=== PATIENT | female | born 1955 | race Two or more races ===

== ENCOUNTER 2018-10-15 18:55 | Inpatient (IN) | payer OTHER ==
[~2018-10-15] VITALS: Ht 162.6 cm; Wt 76.2 kg
--- NOTE | 2018-10-15 19:02 | NUR ---
AT BEDSIDE FOR EVAL.
--- NOTE | 2018-10-15 19:12 | NUR ---
KENNY FROM WORK. AAOX4. PT LETHARGIC. BREATHING RAPID. ON 02 VIA NC @2LPM. C/O SOB AND NEAR SYNCOPE. PT TO ER BED 8. SEEN PT. AWAITING ORDERS
--- NOTE | 2018-10-15 19:19 | NUR ---
[facility]
--- NOTE | 2018-10-15 19:25 | NUR ---
IV LINE OBTAINED ON L AC 20G. BLOOD DRAWN AND GIVEN TO GROUP CONTRACT ANALYST AT BEDSIDE
[2018-10-15 19:28] LABS: BASOPHILS % (AUTO) 0.3 % (0.0-2.0); HEMATOCRIT 44 % (33-45); HEMOGLOBIN 15.8 g/dL (11.5-14.8); LYMPHOCYTES # (AUTO) 0.7 /CMM (0.8-4.8); LYMPHOCYTES % (AUTO) 7.6 % (20.0-44.0); MEAN CORPUSCULAR HGB CONC 36 g/dl (31.0-36.0); MEAN CORPUSCULAR VOLUME 98 fL (82-100); MONOCYTES # (AUTO) 0.8 /CMM (0.1-1.30); MONOCYTES % (AUTO) 8.4 % (2.0-12.0); NEUTROPHILS # (AUTO) 7.9 /CMM (1.8-8.9); NEUTROPHILS % (AUTO) 83.7 % (43.0-81.0); PLATELET COUNT (AUTO) 196 /CMM (150-450); RED BLOOD CELL COUNT(AUTO) 4.49 MIL/uL (4.0-5.2); WHITE BLOOD COUNT (AUTO) 9.4 K/uL (4.3-11.0)
[2018-10-15] MEDS ORDERED: IPRATROPIUM NEB FS 0.5 MG/2.5 ML AMPUL.NEB NEB ONE (19:30)
[2018-10-15] MEDS ORDERED: ALBUTEROL FS 2.5 MG/3 ML VIAL.NEB NEB ONE (19:30)
--- NOTE | 2018-10-15 19:35 | NUR ---
PT BEING WHEELED TO CT ON [facility]
--- NOTE | 2018-10-15 19:45 | NUR ---
CALLED PER PT REQUEST TO NOTIFY THAT SHE IS IN HOSPITAL
[2018-10-15 19:48] LABS: B-TYPE NATRIURETIC PEPTIDE 3864 PG/ML (0-125)
[2018-10-15 19:49] LABS: ALCOHOL, BLOOD < 3 mg/dL (0-0)
[2018-10-15] MEDS ORDERED: ALBUTEROL FS 2.5 MG/3 ML VIAL.NEB ONE (20:06)
[2018-10-15] MEDS ORDERED: IPRATROPIUM NEB FS 0.5 MG/2.5 ML AMPUL.NEB ONE (20:07)
[2018-10-15 20:18] LABS: CHOLESTEROL 154 mg/dL (<200); HDL CHOLESTEROL 116 mg/dL (40-60); LDL 29 mg/dL (0-99); TRIGLYCERIDES 79 mg/dL (30-150)
[2018-10-15 20:20] LABS: ALANINE AMINOTRANSFERASE 21 U/L (12-78); ALBUMIN 3.2 g/dL (3.4-5.0); ALKALINE PHOSPHATASE 57 U/L (46-116); ASPARTATE AMINOTRANSFERASE 59 U/L (15-37); BILIRUBIN,DIRECT 0.6 mg/dL (0.0-0.2); BILIRUBIN,TOTAL 2.3 mg/dL (0.2-1.0); CALCIUM, SERUM 8.5 mg/dL (8.5-10.1); CARBON DIOXIDE 24 mmol/L (21-32); CREATININE 0.4 mg/dL (0.6-1.3); GLUCOSE 109 mg/dL (74-106); POTASSIUM 2.9 mmol/L (3.5-5.1); TOTAL PROTEIN, SERUM 6.4 g/dL (6.4-8.2); UREA NITROGEN, BLOOD 8 mg/dL (7-18)
[2018-10-15 20:25] LABS: SODIUM SERUM 104 mmol/L (136-145)
[2018-10-15 20:26] LABS: CHLORIDE 68 mmol/L (98-107)
[2018-10-15] MEDS ORDERED: IV NS 0.9% 1,000 ML BAG IV ONE (20:30)
--- NOTE | 2018-10-15 20:41 | NUR ---
pt being wheeled to ct on [facility]
[2018-10-15] MEDS ORDERED: POTASSIUM CL. PREMIX PERIPHER. 200 ML ONE (21:33)
[2018-10-15] MEDS: POTASSIUM CL. PREMIX PERIPHER. 50 ML IV SCH ×3 (21:50→23:50)
[2018-10-15] MEDS ORDERED: ASPIRIN EC 81 MG TABLET.DR PO ONE (22:00)
[2018-10-15] MEDS ORDERED: ASPIRIN 81 MG TAB.CHEW ONE (22:07)
--- NOTE | 2018-10-15 22:26 | NUR ---
REPORT GIVEN TO IRAIS ALLEN FOR HUGO.
--- NOTE | 2018-10-15 22:26 | NUR ---
REPORT GIVEN TO IRAIS MANNING FOR HUGO.
[2018-10-15] MEDS ORDERED: HCTZ (22:30)
[2018-10-15] MEDS ORDERED: BENAZEP (22:30)
[2018-10-15] MEDS ORDERED: ZOLPIDEM TARTRATE 5 MG TABLET PO PRN (22:30)
[2018-10-15] MEDS ORDERED: SIMVASTATIN TAB 20MG (22:30)
[2018-10-15] MEDS ORDERED: ALBUTEROL AER HFA (22:30)
[2018-10-15] MEDS ORDERED: ACETAMINOPHEN 325 MG TABLET PO PRN (22:30)
[2018-10-15] MEDS ORDERED: SYMBICORT AER 160-4.5 (22:30)
[2018-10-15] MEDS ORDERED: HYDROCODONE/APAP 5/325MG 1 EACH TABLET PO PRN (22:30)
[2018-10-15] MEDS ORDERED: ONDANSETRON HCL/PF 4 MG/2 ML VIAL IVP PRN (22:30)
[2018-10-15] MEDS ORDERED: MAG HYDROX/AL HYDROX/SIMETH 30 ML UDC PO PRN (22:30)
[2018-10-15] MEDS ORDERED: MELOXICAM 7.5 MG (22:31)
[2018-10-15] MEDS ORDERED: OMEGA ACID (22:31)
[2018-10-15] MEDS ORDERED: SPIRIVA 2.5 MCG (22:31)
[2018-10-15] MEDS ORDERED: METHOCARBAMOL 750 MG (22:31)
[2018-10-15] MEDS ORDERED: FUROSEMIDE 20 MG/2 ML VIAL IV ONE (23:00)
--- NOTE | 2018-10-15 23:10 | NUR ---
INSPECTOR WATCH PARTS RCD PT FROM ER W/DX SEVERE HYPONATREMIA; PT IS A/O x4; PT IS VERY ANXIOUS BECAUSE SHE HAS TO BE AT WORK AT 0900. EXPLAINED TO PT THAT HER LAB VALUES WERE NOT NORMAL AT THIS TIME AND OFFERED PT A NOTE FOR WORK. PT NSR ON MONITOR. RCD PT ON O2 2L NC. PT C/O SOB WHILE ON HER BACK. POTASSIUM REPLACEMENT ONGOING.
--- NOTE | 2018-10-15 23:15 | NUR ---
PT TRANSPORTED TO UNIT WITH RN AND EMT AT BEDSIDE W/ ACLS PROTOCOL. NAD, NOTED WHILE PT BEING TRANSPORTED
[2018-10-15] MEDS: ENOXAPARIN SODIUM 40 MG/0.4 ML DISP.SYRIN SQ SCH (23:17)
[2018-10-15 23:19] VITALS: BP 148/73
--- NOTE | 2018-10-15 23:55 | NUR ---
WOUND CARE RN RCD PT WITH SECOND BAG OF POTASSIUM INFUSING; NOT SCANNED BY CONSTRUCTION JOB COST ESTIMATOR. SCANNED THIRD BAG AT THIS TIME.
[2018-10-16] VITALS (37 sets, daily range): BP systolic 97–144; BP diastolic 33–91
[2018-10-16 00:32] LABS: URINE SODIUM, RANDOM 18 mmol/l (40-220)
[2018-10-16] MEDS: POTASSIUM CL. PREMIX PERIPHER. 50 ML IV SCH (00:38)
[2018-10-16 00:40] LABS: OSMOLALITY,URINE 504 mOS/kg (340-1090)
[2018-10-16 01:32] LABS: BASOPHILS % (AUTO) 0.2 % (0.0-2.0); HEMATOCRIT 42 % (33-45); LYMPHOCYTES # (AUTO) 0.9 /CMM (0.8-4.8); LYMPHOCYTES % (AUTO) 8.8 % (20.0-44.0); MEAN CORPUSCULAR HGB CONC 36 g/dl (31.0-36.0); MEAN CORPUSCULAR VOLUME 97 fL (82-100); MONOCYTES # (AUTO) 0.8 /CMM (0.1-1.30); MONOCYTES % (AUTO) 7.5 % (2.0-12.0); NEUTROPHILS # (AUTO) 8.9 /CMM (1.8-8.9); NEUTROPHILS % (AUTO) 83.5 % (43.0-81.0); PLATELET COUNT (AUTO) 167 /CMM (150-450); RED BLOOD CELL COUNT(AUTO) 4.29 MIL/uL (4.0-5.2); WHITE BLOOD COUNT (AUTO) 10.7 K/uL (4.3-11.0)
[2018-10-16] MEDS: Z GUARD REMEDY 2 OZ OINT TP PRN ×2 (01:39→16:39)
--- NOTE | 2018-10-16 01:40 | NUR ---
HAND WELT BUTTER THREE BAGS OF POTASSIUM IV ADMINISTERED IN ICU.
[2018-10-16 01:42] LABS: CALCIUM, SERUM 8.1 mg/dL (8.5-10.1); CREATININE 0.4 mg/dL (0.6-1.3); PHOSPHORUS 2.3 mg/dL (2.5-4.9)
[2018-10-16 01:49] LABS: POTASSIUM 2.7 mmol/L (3.5-5.1)
[2018-10-16 01:50] LABS: MAGNESIUM 1.1 mg/dL (1.8-2.4)
[2018-10-16] MEDS: Magnesium 1GM/D5W 100ML PREMIX 100 ML IV SCH ×3 (02:22→04:11)
[2018-10-16] MEDS ORDERED: POTASSIUM CHLORIDE 20 MEQ TAB.PRT.SR PO ONE (02:30)
[2018-10-16 06:37] LABS: BASOPHILS % (AUTO) 0.1 % (0.0-2.0); EOSINOPHILS % (AUTO) 0.1 % (0.0-6.0); HEMATOCRIT 40 % (33-45); HEMOGLOBIN 14.5 g/dL (11.5-14.8); LYMPHOCYTES # (AUTO) 1.1 /CMM (0.8-4.8); LYMPHOCYTES % (AUTO) 13.5 % (20.0-44.0); MEAN CORPUSCULAR HGB CONC 36 g/dl (31.0-36.0); MEAN CORPUSCULAR VOLUME 97 fL (82-100); MONOCYTES # (AUTO) 0.6 /CMM (0.1-1.30); NEUTROPHILS # (AUTO) 6.3 /CMM (1.8-8.9); NEUTROPHILS % (AUTO) 78.3 % (43.0-81.0); PLATELET COUNT (AUTO) 167 /CMM (150-450); RED BLOOD CELL COUNT(AUTO) 4.18 MIL/uL (4.0-5.2)
[2018-10-16 06:40] LABS: CALCIUM, SERUM 8.1 mg/dL (8.5-10.1); CREATININE 0.4 mg/dL (0.6-1.3); MAGNESIUM 2.2 mg/dL (1.8-2.4); PHOSPHORUS 2.2 mg/dL (2.5-4.9)
[2018-10-16 06:48] LABS: POTASSIUM 2.5 mmol/L (3.5-5.1)
--- NOTE | 2018-10-16 07:15 | NUR ---
RECEIVED CARE OF PATIENT FROM IRAIS MANNING. PATIENT A/OX3 WITH PERIODS OF FORGETFULNESS. TOLERATING LOW FLOW 02 NC WITHOUT SOB, DIFFICULTY BREATHING, DENIES PAIN, AND NO S/S OF ACUTE DISTRESS. PATIENT TELE SINUS. IV SITES C/D/I/P. SAFETY, SKIN, ASPIRATION PRECAUTIONS IN PLACE AND WILL MONITOR.
[2018-10-16] MEDS ORDERED: POTASSIUM CL. PREMIX PERIPHER. 50 ML IV SCH (08:00)
[2018-10-16] MEDS ORDERED: POTASSIUM PHOSPHATE MM 15 MMOL in IV D5W 250 ML IV SCH (08:30)
--- NOTE | 2018-10-16 08:31 | NUR ---
PER DR JAFFE STOP ALL IV KCL REPLACEMENT. GIVE ORDERED PO
[2018-10-16] MEDS ORDERED: IV NS 0.9% 1,000 ML IV SCH (09:00)
[2018-10-16 09:21] LABS: THYROID STIMULATING HORMONE 0.875 uIU/mL (0.358-3.74)
[2018-10-16] MEDS: POTASSIUM CHLORIDE 20 MEQ TAB.PRT.SR PO SCH ×5 (09:41→13:59)
[2018-10-16] MEDS: POTASSIUM PHOSPHATE MM 7.5 MMOL in IV D5W 100 ML IV SCH ×2 (09:46→12:50)
[2018-10-16] MEDS: FUROSEMIDE 40 MG/4 ML VIAL IV SCH ×2 (09:46→12:50)
--- NOTE | 2018-10-16 10:50 | NUR ---
DR BLANCO AT BEDSIDE. PER PATIENT REQUESTING BREATHING TREATMENTS. MEDICATIONS ORDERED PER MD ORDER. PATIENT TOLERATING LOW FLOW NC AT 2L WITHOUT DIFFICULTY BREATHING OR SOB. CONTINUES WITH ACTIVE WET COUGH; PER PATIENT THIS HAPPENS FREQUENTLY TO HER.
[2018-10-16] MEDS: IPRATROPIUM NEB FS 0.5 MG/2.5 ML AMPUL.NEB NEB PRN ×2 (11:01→15:35)
[2018-10-16] MEDS: ALBUTEROL FS 2.5 MG/0.5 ML VIAL.NEB NEB PRN ×2 (11:01→15:35)
[2018-10-16] MEDS ORDERED: IV Sodium Chloride 3% 500 ML 500 ML IV ONE (11:30)
[2018-10-16 12:24] LABS: CALCIUM, SERUM 8.3 mg/dL (8.5-10.1); CREATININE 0.4 mg/dL (0.6-1.3); POTASSIUM 2.9 mmol/L (3.5-5.1)
[2018-10-16] MEDS: methylPREDNISolone SOD SUCC 125 MG/2ML VIAL IV SCH ×2 (12:50→16:39)
[2018-10-16 18:51] LABS: CALCIUM, SERUM 8.1 mg/dL (8.5-10.1); CREATININE 0.5 mg/dL (0.6-1.3); POTASSIUM 3.2 mmol/L (3.5-5.1)
--- NOTE | 2018-10-16 19:03 | NUR ---
ALL DUE MEDS GIVEN AND ALL NEEDS MET. PATIENT IV SITES C/D/I/P. GALEAS CATH TO GRAVITY WITH 3900ML OUTPUT S/P 80MEQ LASIX TODAY. AFEBRILE. TELE NSR/ST. TOLERATING LOW FLOW 02 NC. NO DISTRESS NOTED, NO SOB, DIFFICULTY BREATHING AND DENIES PAIN. SKIN, SAFETY, ASPIRATION PRECAUTIONS IN PLACE AND MONITORED. CARE ENDORSED TO LOBITO DREW FOR HUGO. Addendum: 10/16/18 at 1905 by NOELLE AGUSTIN RN CARE ENDORSED TO IRAIS MANNING FOR HUGO
[2018-10-16] MEDS: ENOXAPARIN SODIUM 40 MG/0.4 ML DISP.SYRIN SQ SCH (22:20)
--- NOTE | 2018-10-16 22:30 | NUR ---
LAB INSTRUCTOR PT GIVEN TYLENOL PER REQUEST FOR BLE PAIN 07/06. CONTINUE TO MONITOR.
[2018-10-17] VITALS (22 sets, daily range): BP systolic 111–152; BP diastolic 51–75
--- NOTE | 2018-10-17 | NUR ---
LUMBER TRIPPER PT NTOED VERY RESTLESS; PER PT SHE IS UNABLE TO SLEEP. TURNED OFF LIGHTS. TV AND ENCOURAGED PT TO SLEEP. CONTINUE TO MONITOR.
[2018-10-17 00:50] LABS: CALCIUM, SERUM 8.3 mg/dL (8.5-10.1); CREATININE 0.5 mg/dL (0.6-1.3); POTASSIUM 3.3 mmol/L (3.5-5.1)
--- NOTE | 2018-10-17 03:30 | NUR ---
COMMUNICATION EQUIPMENT MECHANIC PT CALM AT THIS TIME; HAS BEEN SLEEPING FOR 3 HRS. BED ALARM REMAINS ON.
[2018-10-17 05:06] LABS: BASOPHILS % (AUTO) 0.3 % (0.0-2.0); HEMATOCRIT 42 % (33-45); HEMOGLOBIN 15.3 g/dL (11.5-14.8); LYMPHOCYTES # (AUTO) 0.3 /CMM (0.8-4.8); LYMPHOCYTES % (AUTO) 3.9 % (20.0-44.0); MEAN CORPUSCULAR HGB CONC 36 g/dl (31.0-36.0); MEAN CORPUSCULAR VOLUME 99 fL (82-100); MONOCYTES # (AUTO) 0.3 /CMM (0.1-1.30); MONOCYTES % (AUTO) 4.4 % (2.0-12.0); NEUTROPHILS # (AUTO) 6.8 /CMM (1.8-8.9); NEUTROPHILS % (AUTO) 91.4 % (43.0-81.0); PLATELET COUNT (AUTO) 193 /CMM (150-450); WHITE BLOOD COUNT (AUTO) 7.4 K/uL (4.3-11.0)
[2018-10-17 05:21] LABS: ALBUMIN 3.2 g/dL (3.4-5.0); BILIRUBIN,TOTAL 1.2 mg/dL (0.2-1.0); CALCIUM, SERUM 8.6 mg/dL (8.5-10.1); CREATININE 0.4 mg/dL (0.6-1.3); MAGNESIUM 1.4 mg/dL (1.8-2.4); POTASSIUM 3.3 mmol/L (3.5-5.1); TOTAL PROTEIN, SERUM 6.6 g/dL (6.4-8.2)
[2018-10-17 05:23] LABS: THYROID STIMULATING HORMONE 0.495 uIU/mL (0.358-3.74); URIC ACID 5.1 mg/dL (2.6-7.2)
--- NOTE | 2018-10-17 07:15 | NUR ---
pT RECEIVED THS MORNING ALERT AND ORIENTED,ON INSULIN DRIPP AT 3ML.PT BS Q 1HR WNL 11,125,191.PT SEEN BY MD WHO ORDERED LANTUS AND TO STOP INSULIN DRIP AFTER PT STARTED ON LANTUS.ORDER IMPLEMENTED,PT BS WNL NO S/S OF HYPERGLYCEMIA NOTED.PT HAS 3 MEALS WITHOUT ANY PROBLEMS.PT POTASSIUM WAS 3.3 MD AWARE NEW ORDER FOR REPLACEMENT DONE .
[2018-10-17] MEDS: Magnesium 1GM/D5W 100ML PREMIX 100 ML IV SCH ×2 (08:00→09:35)
--- NOTE | 2018-10-17 08:38 | NUR ---
WOUND CARE CONSULT: PT PRESENTS WITH RED RASH TO PERINEUM AND INNER/LOWER BUTTOCKS, PRESENT ON ADMISSION. RECOMMENDATIONS MADE FOR SKIN CARE AND PROTECTION. DISCUSSED WITH NURSING STAFF. DEFER TO DPM FOR DRY ESCHAR/WOUND TO LEFT LOWER LEG, PRESENT ON ADMISSION. PT HAS ADAL BUTTS. WILL SEE PRN. GONZALES IN AGREEMENT WITH PLAN OF CARE. Addendum: 10/17/18 at 0839 by OLIVE BELTRAN WNDNU Amended: Links added.
[2018-10-17] MEDS: POTASSIUM CHLORIDE 20 MEQ TAB.PRT.SR PO SCH ×3 (09:00→10:00)
[2018-10-17] MEDS: CLOTRIMAZOLE 1% 15 GM TUBE TP SCH ×2 (09:35→18:05)
[2018-10-17] MEDS: methylPREDNISolone SOD SUCC 125 MG/2ML VIAL IV SCH ×3 (09:35→18:05)
[2018-10-17] MEDS ORDERED: CEFTRIAXONE 1 G in IV D5W 50 ML IV SCH (11:00)
[2018-10-17] MEDS: AZITHROMYCIN 500 MG in IV D5W 250 ML IV SCH (12:00)
[2018-10-17] MEDS ORDERED: HYDROCODONE/APAP 5/325MG 1 EACH TABLET PO PRN (12:00)
[2018-10-17 12:06] LABS: CALCIUM, SERUM 9.2 mg/dL (8.5-10.1); CREATININE 0.5 mg/dL (0.6-1.3); POTASSIUM 2.9 mmol/L (3.5-5.1)
[2018-10-17] MEDS: LEVOFLOXACIN 500 MG /D5W 100ML 500 MG in PREMIX 1 EA IV SCH (14:00)
[2018-10-17 18:40] LABS: CALCIUM, SERUM 8.6 mg/dL (8.5-10.1); CREATININE 0.7 mg/dL (0.6-1.3); POTASSIUM 3.1 mmol/L (3.5-5.1)
--- NOTE | 2018-10-17 19:08 | NUR ---
pT ALERT AND ORIENTED,RECEIVED THIS MORNING FROM OUTGOING RN ,MAGNESIUM GIVING ORDERED AND POTASIUM.PT NOT ON SODIUM ANYMORE BECAUSE LEVEL IS NORMAL.PT SEEN BY NEW ORDER IMPLEMANTED .PT GALEAS LEAKING,BALLOON INFLATED AND BETTER AT THIS TIS TIME.PT SKIN REMAIS FRAGILE AND SEEN BY WOUND NURSE WHO PRESCRIBE NEW TX FOR IN ,COCCYX AREA RED, PT DOWNGRADE AND TRANSFERED TO THIRD FLOOR ,GALEAS OUT AND OUTPUT UPDATED.
--- NOTE | 2018-10-17 19:25 | NUR ---
TOURIST INFORMATION ASSISTANT OPENING NOTES: RECEIVED PT FROM ICU SHE IS DOWNGRADED TO TELE NOW. PT IS ON 2LPM VIA NC AND IS TOLERATING WELL. NO SOB NOTED. NO S/S OF DISTRESS. IV ON R FOREARM #18G AND L FOREARM #20G BOTH HAVE BEEN FLUSHED. BOTH PATENT AND INTACT. CURRENTLY H/L. INFORMED PT THAT SHE IS ON FLUID RESTRICTION. BED KEPT IN LOW, LOCKED POSITION, AND SIDE RAILS X 2UP. PT IN SEMI-CASTRO'S POSITION. PT ON TELE BOX AND READING SHOWS SR 92. BED ALARM ACTIVATED. WILL CONTINUE TO MONITOR PT.
[2018-10-17] MEDS ORDERED: POTASSIUM CHLORIDE 20 MEQ TAB.PRT.SR PO ONE (20:00)
[2018-10-17] MEDS: IPRATROPIUM NEB FS 0.5 MG/2.5 ML AMPUL.NEB NEB PRN (20:07)
[2018-10-17] MEDS: ALBUTEROL FS 2.5 MG/0.5 ML VIAL.NEB NEB PRN (20:07)
[2018-10-17] MEDS: ENOXAPARIN SODIUM 40 MG/0.4 ML DISP.SYRIN SQ SCH (21:21)
--- NOTE | 2018-10-17 21:59 | NUR ---
HOB MACHINE OPERATOR NOTES: URINE COLLECTED AND PLACED IN REFRIGERATOR.
[2018-10-18 00:26] VITALS: BP 107/64
[2018-10-18 00:29] LABS: URINE SODIUM, RANDOM < 5 mmol/l (40-220)
[2018-10-18 00:45] LABS: OSMOLALITY,URINE 323 mOS/kg (340-1090)
[2018-10-18 04:26] VITALS: BP 110/65
--- NOTE | 2018-10-18 04:29 | NUR ---
ELECTRICIAN UNDERGROUND NOTES: STRATEGIC INSIGHTS LEAD JIGAR KAMARA ON FLOOR. INFORMED HER OF URINE OSMOLALLITY 323 AND UR RANDOM NA <5 ; NO NEW ORDERS AT THIS TIME. ALSO AWARE THAT NA IS 123; AGAIN, NO NEW ORDERS AT THIS TIME.
--- NOTE | 2018-10-18 06:43 | NUR ---
BRICK WASHER CLOSING NOTES: ALL NEEDS WERE ATTENDED AND ANTICIPATED FOR. PT KEPT CLEAN, DRY, AND COMFORTABLE. PT REMAINS ON 2LPM VIA NC. IVS REMAIN INTACT. BOTH HAVE BEEN FLUSHED AND KEPT H/L. PT ON TELE MONITOR AND READING SHOWS SR 85 WITH PACS AND PVCS. PT REMAINS ON FLUID RESTRICTION AND PT UNDERSTANDS. BED ALARM ACTIVATED. BED KEPT IN LOW, LOCKED POSITION, AND SIDE RAILS X 3UP. WILL ENDORSE TO AM NURSE FOR HUGO. Addendum: 10/18/18 at 0719 by CARLOS GONCALVES RN PT UPSET THAT MACHINE OPERATOR IS ALWAYS GETTING BLOOD FROM HER. PT WOULD LIKE A DOCTOR TO SPEAK AND EXPLAIN THINGS TO HER. ENDORSED TO IRAIS TERRELL.
--- NOTE | 2018-10-18 07:26 | NUR ---
CANDLEMAKER OPENING NOTES Received patient on 2 L nasal cannula, no sob noted. Patient remains a/o x4, no s/s of pain noted. Patient remains on fluid restriction. Patient's Right and L forearm remains patent and unobstructed. Patient lying down on bed and call light is within reach.
[2018-10-18 07:36] LABS: ALBUMIN 2.9 g/dL (3.4-5.0); BILIRUBIN,TOTAL 1.2 mg/dL (0.2-1.0); CREATININE 0.4 mg/dL (0.6-1.3); MAGNESIUM 1.6 mg/dL (1.8-2.4); PHOSPHORUS 2.3 mg/dL (2.5-4.9); POTASSIUM 3.9 mmol/L (3.5-5.1); TOTAL PROTEIN, SERUM 6.4 g/dL (6.4-8.2)
[2018-10-18 08:00] VITALS: BP 138/77
[2018-10-18] MEDS: Magnesium 1GM/D5W 100ML PREMIX 100 ML IV SCH ×2 (08:32→09:51)
[2018-10-18] MEDS: methylPREDNISolone SOD SUCC 125 MG/2ML VIAL IV SCH ×2 (08:37→12:28)
[2018-10-18] MEDS: CLOTRIMAZOLE 1% 15 GM TUBE TP SCH (08:42)
[2018-10-18] MEDS ORDERED: PRED10TA PO (09:53)
[2018-10-18] MEDS ORDERED: BENA20TA9 PO (09:53)
[2018-10-18] MEDS ORDERED: LEVO500T90 PO (09:53)
[2018-10-18 10:40] LABS: BASOPHILS % (AUTO) 0.1 % (0.0-2.0); EOSINOPHILS % (AUTO) 0.1 % (0.0-6.0); HEMATOCRIT 40 % (33-45); HEMOGLOBIN 13.7 g/dL (11.5-14.8); LYMPHOCYTES # (AUTO) 0.9 /CMM (0.8-4.8); LYMPHOCYTES % (AUTO) 7.7 % (20.0-44.0); MEAN CORPUSCULAR HGB CONC 34 g/dl (31.0-36.0); MEAN CORPUSCULAR VOLUME 101 fL (82-100); MONOCYTES # (AUTO) 0.8 /CMM (0.1-1.30); MONOCYTES % (AUTO) 6.9 % (2.0-12.0); NEUTROPHILS # (AUTO) 10.2 /CMM (1.8-8.9); NEUTROPHILS % (AUTO) 85.2 % (43.0-81.0); PLATELET COUNT (AUTO) 183 /CMM (150-450); RED BLOOD CELL COUNT(AUTO) 3.98 MIL/uL (4.0-5.2); WHITE BLOOD COUNT (AUTO) 11.9 K/uL (4.3-11.0)
[2018-10-18] MEDS: AZITHROMYCIN 500 MG in IV D5W 250 ML IV SCH (12:07)
[2018-10-18] MEDS ORDERED: K PHOS NEUTRAL 250 MG TABLET PO ONE (12:30)
[2018-10-18] MEDS: LEVOFLOXACIN 500 MG /D5W 100ML 500 MG in PREMIX 1 EA IV SCH (13:40)
--- NOTE | 2018-10-18 15:38 | NUR ---
automotive parts coordinator notes Patient discharged at this time. No sob noted, vital signs stable. Patient denies pain at this time. Patient has her walker as prescribed by the PT. IV removed with minimal bleeding. Patient's wound photo taken, but patient refused photos of her perineal area. Took photos of her right and left arm, and right and left leg. Patient stated she did not want photos of anything else. Patient has all the paperwork for discharge. Patient has all her belongings. All paperwork signed, and all patient's concern is answered. Patient has her prescription as well. Patient was picked up by her .
== END 2018-10-18 15:40 | disposition home or self-care (01) | DRG 280 ==
LOC: ER 18:55 → ICU 21:39 → TELE 10-17 18:28 → MED 10-18 08:12
PROVIDERS: ADMIT Nurse Practitioner Acute Care; ATTEND Student in an Organized Health Care Education/Training Program
DX: I11.0 Hypertensive heart disease with heart failure (principal); G93.41 Metabolic encephalopathy; I21.A1 Myocardial infarction type 2; J15.9 Unspecified bacterial pneumonia; E44.1 Mild protein-calorie malnutrition; J44.1 Chronic obstructive pulmonary disease with (acute) exacerbation; E87.2 Acidosis; E87.1 Hypo-osmolality and hyponatremia; I16.0 Hypertensive urgency; I50.33 Acute on chronic diastolic (congestive) heart failure; D69.2 Other nonthrombocytopenic purpura; E83.39 Other disorders of phosphorus metabolism; E83.42 Hypomagnesemia; E87.6 Hypokalemia; F17.210 Nicotine dependence, cigarettes, uncomplicated; I25.10 Atherosclerotic heart disease of native coronary artery without angina pectoris; Z96.641 Presence of right artificial hip joint; R55 Syncope and collapse; E88.09 Other disorders of plasma-protein metabolism, not elsewhere classified; R74.0 Nonspecific elevation of levels of transaminase and lactic acid dehydrogenase [LDH]; Z68.28 Body mass index [BMI] 28.0-28.9, adult; S80.812A Abrasion, left lower leg, initial encounter; X58.XXXA Exposure to other specified factors, initial encounter; Y93.9 Activity, unspecified; T50.2X5A Adverse effect of carbonic-anhydrase inhibitors, benzothiadiazides and other diuretics, initial encounter; J40 Bronchitis, not specified as acute or chronic; Y92.009 Unspecified place in unspecified non-institutional (private) residence as the place of occurrence of the external cause
CPT/HCPCS: 36415; 70450-TC; 71045-TC; 80048-TC; 80053-TC; 80061-TC; 80076-TC; 80305; 82962-TC; 83605-TC; 83735-TC; 83880; 83935-TC; 84100-TC; 84300-TC; 84439-TC; 84443-TC; 84484-TC; 84550-TC; 85025-TC; 85730-TC; 87040-TC; 87081-TC; 93307-TC; 97116-TC; 97530-TC; A4216; G0378; G0480; J0456; J0696; J1650; J1940; J1956; J2930; J3475; J3480; J3490; J7030; J7060

== ENCOUNTER 2019-05-04 22:32 | Inpatient (IN) | payer OTHER ==
[2019-05-03] MEDS: CEFTRIAXONE 1GM BAG (ER ONLY) 50 ML IV ONE (23:43)
[2019-05-03] MEDS: IV NS 0.9% 1,000 ML BAG IV ONE (23:43)
[~2019-05-04] VITALS: Ht 167.6 cm; Wt 78.0 kg
[~2019-05-04 22:32] MED LIST: ALBUTEROL AER HFA; BENA20TA9 PO; BENAZEP; HCTZ; LEVO500T90 PO; MELOXICAM 7.5 MG; METHOCARBAMOL 750 MG; OMEGA ACID; PRED10TA PO; SIMVASTATIN TAB 20MG; SPIRIVA 2.5 MCG; SYMBICORT AER 160-4.5
--- NOTE | 2019-05-04 22:32 | NUR ---
BIBRA FOR RESPIRATORY FAILURE. PT ON AMBU BAG UPON ARRIVAL, PT TO BED 5. PT ON MONITOR, MD AT BEDSIDE FOR EVAL
--- NOTE | 2019-05-04 22:40 | NUR ---
PER NURSING SUP NO ICU NURSE AVAILABLE AT THIS TIME
--- NOTE | 2019-05-04 22:46 | NUR ---
RT NOTE Late Entry: Pt arrived via Fire department on bag mask ventilation at 15lpm. Pt showed signs of respiratory failure. Pt orally intubated via ETT #7.5 secured at 23cm at the lip line Per dr bravo request. Colormetric Co2 color change confirmed. Bs are clear bilaterally. Abg to be taken in [address] bravo req. waiting for chest x ray results. Alarms are set and audible. Vent plugged into red outlet. Ambu bag bedside. Will continue to monitor closely. Addendum: 05/05/19 at 0338 by BRYON QUIROZ RT Amended: Links added.
[2019-05-04] MEDS ORDERED: LEVOFLOXACIN 750 MG /D5W 150ML 150 ML IV ONE (23:00)
[2019-05-04] MEDS ORDERED: ALBUTEROL FS 2.5 MG/3 ML VIAL.NEB NEB ONE (23:00)
[2019-05-04] MEDS ORDERED: IPRATROPIUM NEB FS 0.5 MG/2.5 ML AMPUL.NEB NEB ONE (23:00)
[2019-05-04 23:01] LABS: BASOPHILS % (AUTO) 0.2 % (0.0-2.0); HEMATOCRIT 43 % (33-45); HEMOGLOBIN 14.4 g/dL (11.5-14.8); LYMPHOCYTES % (AUTO) 8.5 % (20.0-44.0); MEAN CORPUSCULAR HGB CONC 34 g/dl (31.0-36.0); MEAN CORPUSCULAR VOLUME 106 fL (82-100); MONOCYTES # (AUTO) 0.6 /CMM (0.1-1.30); MONOCYTES % (AUTO) 5.2 % (2.0-12.0); NEUTROPHILS # (AUTO) 10.2 /CMM (1.8-8.9); NEUTROPHILS % (AUTO) 86.1 % (43.0-81.0); PLATELET COUNT (AUTO) 116 /CMM (150-450); RED BLOOD CELL COUNT(AUTO) 4.01 MIL/uL (4.0-5.2); WHITE BLOOD COUNT (AUTO) 11.8 K/uL (4.3-11.0)
--- NOTE | 2019-05-04 23:05 | NUR ---
LIBRADO ARMAS STARTED PER . DR. ÁLVAREZ ORDERS. TITRATE TO EFFECT
--- NOTE | 2019-05-04 23:07 | NUR ---
2233 ETOMIDATE 20MG IVP AND SUCCYCHLINE 120MG IVP GIVEN UNDER DIRECT SUPERVISION OF MD DR. ÁLVAREZ. 2235 7.5 ET TUBE PLACED BY MD AND RT AT 2235, 23 AT THE LIP, PLACEMENT CHECK VIA BILAT BREATH SOUNDS, CXR ORDERED TO CONFIRM PLACEMENT, O2 SAT 100%, PT COLOR IS PINK, SKIN WARM AND DRY
[2019-05-04 23:21] LABS: APPEARANCE,URINE Clear (CLEAR); BILIRUBIN,URINE Negative (NEGATIVE); BLOOD, URINE Moderate Ery/uL (NEGATIVE); COLOR,URINE Yellow (YELLOW); KETONES,URINE >=160 (NEGATIVE); LEUKOCYTE ESTERASE ,URINE Negative (NEGATIVE); NITRITE, URINE Negative (NEGATIVE); PH,URINE 5.5 (5.0-8.0); PROTEIN,URINE >=300 mg/dl (NEGATIVE); UGLUCOSE 250 MG/DL mg/dL (NEGATIVE); UROBILINOGEN,URINE 0.2 EU/dL (0.2)
[2019-05-04] MEDS ORDERED: ALBUTEROL FS 2.5 MG/3 ML VIAL.NEB ONE (23:31)
[2019-05-04] MEDS ORDERED: IPRATROPIUM NEB FS 0.5 MG/2.5 ML AMPUL.NEB ONE (23:31)
[2019-05-04 23:38] LABS: ABG OXYGEN SATURATION 99.3 % (92.0-98.5); ABG PH 7.345 (7.350-7.450); ABG PO2 438.4 mmHg (75.0-100.0); AaDO2 241.6 mmHg; COHb 4.1 % (0.5-1.5); MetHb 0.4 % (0.0-1.5); O2Hb 94.8 % (94.0-97.0); SITE, ABG Left Radial; VENT MODE, BG AC 18 500 100% +5
[2019-05-04] MEDS ORDERED: HALOPERIDOL LACTATE INJ 5 MG/ML VIAL ONE (23:42)
[2019-05-04] MEDS ORDERED: CEFTRIAXONE 1GM BAG (ER ONLY) 50 ML IV ONE (23:42)
[2019-05-04] MEDS: CEFTRIAXONE 1GM BAG (ER ONLY) 50 ML IV ONE (23:43)
[2019-05-04] MEDS: IV NS 0.9% 1,000 ML BAG IV ONE (23:43)
[2019-05-05] VITALS (67 sets, daily range): BP systolic 86–150; BP diastolic 39–80
[2019-05-05] MEDS ORDERED: HALOPERIDOL LACTATE INJ 5 MG/ML VIAL IV ONE
[2019-05-05 00:05] LABS: ALANINE AMINOTRANSFERASE 29 U/L (12-78); ALKALINE PHOSPHATASE 52 U/L (46-116); ASPARTATE AMINOTRANSFERASE 51 U/L (15-37); B-TYPE NATRIURETIC PEPTIDE 10699 PG/ML (0-125); BILIRUBIN,DIRECT 0.5 mg/dL (0.0-0.2); BILIRUBIN,TOTAL 1.9 mg/dL (0.2-1.0); CALCIUM, SERUM 7.7 mg/dL (8.5-10.1); CARBON DIOXIDE 21 mmol/L (21-32); CHLORIDE 81 mmol/L (98-107); CREATININE 0.5 mg/dL (0.6-1.3); GLUCOSE 201 mg/dL (74-106); POTASSIUM 3.6 mmol/L (3.5-5.1); UREA NITROGEN, BLOOD 3 mg/dL (7-18)
[2019-05-05 00:06] LABS: SODIUM SERUM 117 mmol/L (136-145)
[2019-05-05] MEDS ORDERED: LORAZEPAM INJ 2 MG/ML VIAL ONE ×2 (00:13→02:51)
[2019-05-05] MEDS ORDERED: LEVOFLOXACIN 750 MG /D5W 150ML 150 ML IV ONE (00:28)
[2019-05-05] MEDS ORDERED: LORAZEPAM INJ 2 MG/ML VIAL IV ONE (00:30)
[2019-05-05] MEDS ORDERED: SIMV-46 PO (00:33)
[2019-05-05] MEDS ORDERED: METH500T6 PO (00:33)
[2019-05-05] MEDS ORDERED: TIOT4MIS2 IH (00:33)
[2019-05-05] MEDS ORDERED: IRBE75TA11 PO (00:33)
[2019-05-05 00:40] LABS: BACTERIA,URINE Few /HPF (None Seen); SQUAMOUS EPITHELIAL CELL,UR Few /HPF (None Seen)
[2019-05-05] MEDS ORDERED: IV Sodium Chloride 3% 500 ML 500 ML IV ONE ×2 (01:00→04:04)
--- NOTE | 2019-05-05 01:08 | NUR ---
PT'S IS TAKING THE PT'S MEDICATION HOME WITH HIM.
[2019-05-05] MEDS ORDERED: IV NS 0.9% 1,000 ML BAG IV ONE (01:30)
--- NOTE | 2019-05-05 01:53 | NUR ---
DR ÁLVAREZ IS SPEAKING TO THE PT'S .
--- NOTE | 2019-05-05 01:58 | NUR ---
RUDY IS AT THE BEDSIDE FOR BLOOD DRAW.
[2019-05-05] MEDS ORDERED: NOREPINEPHRINE 8 MG in IV D5W 500 ML IV PRN (02:30)
[2019-05-05] MEDS ORDERED: IV Sodium Chloride 3% 500 ML 500 ML IV PRN ×2 (02:30→03:00)
[2019-05-05] MEDS ORDERED: ALBUTEROL FS 2.5 MG/3 ML VIAL.NEB NEB PRN (02:30)
[2019-05-05] MEDS ORDERED: methylPREDNISolone SOD SUCC 40 MG/ML VIAL IV SCH (03:00)
[2019-05-05] MEDS ORDERED: LORAZEPAM INJ 2 MG/ML VIAL IV PRN (03:00)
[2019-05-05] MEDS ORDERED: IV NS 0.9% 250 ML IV PRN (03:00)
[2019-05-05] MEDS ORDERED: IPRATROPIUM NEB FS 0.5 MG/2.5 ML AMPUL.NEB NEB PRN (03:00)
--- NOTE | 2019-05-05 03:08 | NUR ---
PT TO ICU VIA BELL WITH RT AND RN.
--- NOTE | 2019-05-05 03:12 | NUR ---
Giovany banerjee in [facility] - 05/05/19 at 0313 by LYUBOV PT TO
--- NOTE | 2019-05-05 03:13 | NUR ---
SEO EXPERTFUR MIXER NOTES RECEIVED PATIENT FROM ER VIA [facility]. PATIENT SEDATED ON DIPRIVAN GTT, ORALLY INTUBATED ON MECHANICAL VENTILATION. LEFT NARE NGT PATENT AND INTACT, CLAMPED. IV LINES PATENT AND INTACT, FLUSHED WITH NS, FREE FROM ANY S/S OF INFILTRATION OR PHLEBITIS. GALEAS CATHETER PATENT AND INTACT, DRAINING YELLOW URINE VIA GRAVITY. WILL CLOSELY MONITOR PATIENT
[2019-05-05] MEDS: PROPOFOL 100 ML IV PRN ×4 (03:14→20:39)
--- NOTE | 2019-05-05 03:15 | NUR ---
GROUND INSTRUCTOR ADVANCED NOTES PROPOFOL RECEIVED PATIENT FROM ER ON DIPRIVAN GTT @ 20MCG/KG/MIN, CONTINUED AT SAME RATE IN ICU, WILL TITRATE ACCORDINGLY
[2019-05-05] MEDS ORDERED: LEVETIRACETAM (500MG) 500 MG in IV NS 0.9% 100 ML IV SCH ×2 (04:00→18:00)
[2019-05-05] MEDS ORDERED: LEVETIRACETAM (500MG) 500 MG/5 ML VIAL IV ONE (04:04)
[2019-05-05 04:41] LABS: BASOPHILS % (AUTO) 0.2 % (0.0-2.0); EOSINOPHILS % (AUTO) 0.1 % (0.0-6.0); HEMATOCRIT 40 % (33-45); HEMOGLOBIN 13.4 g/dL (11.5-14.8); LYMPHOCYTES # (AUTO) 0.9 /CMM (0.8-4.8); LYMPHOCYTES % (AUTO) 11.7 % (20.0-44.0); MEAN CORPUSCULAR HGB CONC 34 g/dl (31.0-36.0); MEAN CORPUSCULAR VOLUME 106 fL (82-100); MONOCYTES # (AUTO) 0.6 /CMM (0.1-1.30); MONOCYTES % (AUTO) 8.9 % (2.0-12.0); NEUTROPHILS # (AUTO) 5.7 /CMM (1.8-8.9); NEUTROPHILS % (AUTO) 79.1 % (43.0-81.0); PLATELET COUNT (AUTO) 74 /CMM (150-450); RED BLOOD CELL COUNT(AUTO) 3.74 MIL/uL (4.0-5.2); WHITE BLOOD COUNT (AUTO) 7.3 K/uL (4.3-11.0)
[2019-05-05 04:54] LABS: CALCIUM, SERUM 7.4 mg/dL (8.5-10.1); CREATININE 0.4 mg/dL (0.6-1.3)
[2019-05-05 04:59] LABS: POTASSIUM 3.7 mmol/L (3.5-5.1)
[2019-05-05 05:27] LABS: LYMPHOCYTES % (MANUAL) 8 % (16-48); MONOCYTES % (MANUAL) 7 % (0-11.0); NEUTROPHILS % (MANUAL) 85 (42-76)
[2019-05-05 06:02] LABS: ABG OXYGEN SATURATION 98.4 % (92.0-98.5); ABG PCO2 31.3 mmHg (35.0-45.0); ABG PH 7.478 (7.350-7.450); ABG PO2 150.5 mmHg (75.0-100.0); AaDO2 242.9 mmHg; COHb 1.2 % (0.5-1.5); O2Hb 96.2 % (94.0-97.0); SITE, ABG Right Radial; VENT MODE, BG AC 18 500 60% +5
--- NOTE | 2019-05-05 06:30 | NUR ---
DOCUMENTATION CLERK NOTES ABG RESULTS RELAYED TO DR JAVIER. NEW ORDER RECEIVED TO DECREASE FIO2 DOWN TO 50%. WILL CARRY OUT NEW ORDERS AND NOTIFY RT
--- NOTE | 2019-05-05 07:00 | NUR ---
RN NOTE RECEIVED PT ON BED INTUBATED ,SEDATED ON DIPRIVAN AT 15MCG/KG/MIN, ON TELE SR HR IN 90'S , L NARE NGT CLAMPED AND INTACT , GALEAS DRAINING TO GRAVITY WITH YELLOW CLEAR URINE, R HAND ,R WRIST AND L HAND IV SITES G 20 CLEAN, DRY AND INTACT, 3% NS AT 50CC/HR RUNNING VIA R WRIST IV SITE, SR UP x3, CALL LIGHT WITHIN EASY REACH, BED LOCKED AND IN LOWEST POSITION, CONTINUE TO MONITOR .
[2019-05-05] MEDS: ALBUTEROL FS 2.5 MG/3 ML VIAL.NEB NEB SCH ×3 (07:35→20:23)
[2019-05-05] MEDS: IPRATROPIUM NEB FS 0.5 MG/2.5 ML AMPUL.NEB NEB SCH ×3 (07:35→20:23)
--- NOTE | 2019-05-05 07:35 | NUR ---
RT Pt received orally intubated on mechanical ventilation with noted settings. Vent is plugged into red outlet. No SOB or respiratory distress noted at this time. Addendum: 05/05/19 at 0841 by JENNI TESFAYE RT Amended: Links added.
[2019-05-05] MEDS ORDERED: ETOMIDATE 2 MG/ML VIAL IV ONE (08:21)
[2019-05-05] MEDS ORDERED: ENOXAPARIN SODIUM 40 MG/0.4 ML DISP.SYRIN SQ SCH (09:00)
[2019-05-05] MEDS: Potassium Chloride 10 MEQ in IV NS 0.9% 1,000 ML IV PRN (10:22)
[2019-05-05] MEDS: methylPREDNISolone SOD SUCC 40 MG/ML VIAL IV SCH ×2 (11:33→19:34)
--- NOTE | 2019-05-05 12:00 | NUR ---
RN NOTES T= 100.7 , DR JAVIER NOTIFED ,
[2019-05-05] MEDS: ACETAMINOPHEN 650 MG/SUPP.RECT RC PRN ×2 (12:32→19:40)
[2019-05-05 12:45] LABS: CREATININE 0.4 mg/dL (0.6-1.3); POTASSIUM 3.5 mmol/L (3.5-5.1)
--- NOTE | 2019-05-05 13:00 | NUR ---
RN NOTES DR JAVIER NOTIFED REGARDING BMP RESULTS .
--- NOTE | 2019-05-05 14:00 | NUR ---
RN NOTES VSS STABLE, CONTINUE TO MONITOR.
--- NOTE | 2019-05-05 18:00 | NUR ---
RN NOTES PT STILL SEDATED AND INTUBATED, ON DIPRIVAN AT 25MCG/KG/MIN , NO SIGNIFICANT CHANGES NOTED ON THIS SHIFT, WILL ENDORSE TO BUSINESS ANALYTICS ANALYST NURSE FOR CONTINUITY OF CARE
[2019-05-05] MEDS: Z GUARD REMEDY 2 OZ OINT TP SCH (18:21)
--- NOTE | 2019-05-05 19:45 | NUR ---
DATA REDUCTION TECHNICIAN NOTES AX TEMP 100.3. TYLENOL SUPPOSITORY ADMINISTERED. COOLING MEASURES INITIATED
[2019-05-05] MEDS: CEFTRIAXONE 1 G in IV D5W 50 ML IV SCH (20:40)
[2019-05-06] VITALS (25 sets, daily range): BP systolic 98–160; BP diastolic 47–104
--- NOTE | 2019-05-06 | NUR ---
WHEELCHAIR RENTAL CLERK NOTES AX TEMP 99.1, PRIOR COOLING MEASURES EFFECTIVE. WILL CONTINUE TO CLOSELY MONITOR
[2019-05-06] MEDS: PROPOFOL 100 ML IV PRN ×6 (01:20→22:11)
[2019-05-06] MEDS: IPRATROPIUM NEB FS 0.5 MG/2.5 ML AMPUL.NEB NEB SCH ×4 (01:39→20:17)
[2019-05-06] MEDS: ALBUTEROL FS 2.5 MG/3 ML VIAL.NEB NEB SCH ×4 (01:39→20:17)
[2019-05-06] MEDS: Potassium Chloride 10 MEQ in IV NS 0.9% 1,000 ML IV PRN ×2 (03:13→23:01)
[2019-05-06] MEDS: methylPREDNISolone SOD SUCC 40 MG/ML VIAL IV SCH ×3 (03:15→18:57)
--- NOTE | 2019-05-06 04:00 | NUR ---
DIRECTOR LEARNING NOTES FULL BED BATH RENDERED, PATIENT TOLERATED WELL, WILL CONTINUE TO MONITOR
[2019-05-06 04:42] LABS: BASOPHILS % (AUTO) 0.1 % (0.0-2.0); HEMATOCRIT 38 % (33-45); HEMOGLOBIN 12.7 g/dL (11.5-14.8); LYMPHOCYTES # (AUTO) 0.3 /CMM (0.8-4.8); LYMPHOCYTES % (AUTO) 4.4 % (20.0-44.0); MEAN CORPUSCULAR HGB CONC 34 g/dl (31.0-36.0); MEAN CORPUSCULAR VOLUME 107 fL (82-100); MONOCYTES # (AUTO) 0.4 /CMM (0.1-1.30); MONOCYTES % (AUTO) 5.5 % (2.0-12.0); NEUTROPHILS # (AUTO) 5.9 /CMM (1.8-8.9); PLATELET COUNT (AUTO) 98 /CMM (150-450); RED BLOOD CELL COUNT(AUTO) 3.56 MIL/uL (4.0-5.2); WHITE BLOOD COUNT (AUTO) 6.6 K/uL (4.3-11.0)
[2019-05-06 04:58] LABS: ALBUMIN 2.5 g/dL (3.4-5.0); BILIRUBIN,TOTAL 0.6 mg/dL (0.2-1.0); CALCIUM, SERUM 8.1 mg/dL (8.5-10.1); CREATININE 0.3 mg/dL (0.6-1.3); MAGNESIUM 1.7 mg/dL (1.8-2.4); POTASSIUM 3.4 mmol/L (3.5-5.1); TOTAL PROTEIN, SERUM 5.5 g/dL (6.4-8.2)
[2019-05-06 05:48] LABS: LYMPHOCYTES % (MANUAL) 4 % (16-48); MONOCYTES % (MANUAL) 3 % (0-11.0); NEUTROPHILS % (MANUAL) 93 (42-76)
--- NOTE | 2019-05-06 07:00 | NUR ---
CLERK OF SCALES CLOSING NOTES PATIENT RESTING I BED, APPEARS COMFORTABLE, REMAINS SEDATED ON DIPRIVAN GTT, CURRENTLY @ 40MCG, ORALLY INTUBATED ON MECHANICAL VENT. WILL ENDORSE PATIENT TO THE AM SHIFT NURSE FOR CONTINUITY OF CARE
--- NOTE | 2019-05-06 07:15 | NUR ---
RN OPENING NOTE RECEIVED PT IN BED INTUBATED, SEDATED ON DIPRIVAN AT 25MCG/KG/MIN, ON TELE SR HR IN 90'S. TOLERATING MECH VENT SETTINGS WELL. NO SOB, NOT IN RESP. DISTRESS. L NARE NGT CLAMPED AND INTACT, GALEAS DRAINING TO GRAVITY WITH YELLOW CLEAR URINE, R HAND ,R WRIST AND L HAND IV SITES G 20 CLEAN, DRY AND INTACT, KCL 10MEQ IN NS AT 50CC/HR RUNNING VIA R WRIST IV SITE, SR UP x3, CALL LIGHT WITHIN EASY REACH, BED LOCKED AND IN LOWEST POSITION, NO S/SX OF PAIN NOTED. PT. SCHEDULED FOR EXTUBATION ON SHIFT, FAMILY IS AWARE. WILL CONTINUE TO MONITOR.
--- NOTE | 2019-05-06 07:55 | NUR ---
RT PT RECEIVED ORALLY INTUBATED WITH SETTINGS PER MD ORDER. VENT PLUGGED INTO RED OUTLET. ALARMS ON AND WORKING PROPERLY. NO SOB NOTED AT THIS TIME. BREATHING TX'S GIVEN ORDERED. NO ADVERSE REACTIONS OBSERVED. SUCTIONED PRN. WILL CONTINUE TO MONITOR FOR ANY CHANGES. Addendum: 05/06/19 at 1829 by RAMIRO ESCALERA RT Amended: Links added.
[2019-05-06] MEDS ORDERED: POTASSIUM CHLORIDE 10 MEQ/50 ML PREMIXED IVPB FOR PERIPHERAL LINE IV ONE (08:30)
[2019-05-06] MEDS: Z GUARD REMEDY 2 OZ OINT TP SCH ×2 (09:00→21:00)
--- NOTE | 2019-05-06 09:40 | NUR ---
RT PATIENT UNABLE TO TOLERATE WEANING TRIAL. PATIENT WOULD NOT FOLLOW COMMANDS AND BECAME AGITATED AND UNCONTROLLABLE. PATIENT PLACED BACK ON SEDATION FOR SAFETY AND PREVIOUS AC MODE SETTINGS Addendum: 05/06/19 at 0942 by DILCIA MAURICE RT Amended: Links added.
--- NOTE | 2019-05-06 10:00 | NUR ---
RN NOTE: DR. PALMA MADE AWARE OF PATIENT'S RESPONSE TO WEANING DONE. PATIENT WAS NOT TOLERATING WEANING WITH SINUS TACHYCARDIA NOTED IN THE 130S. PER RT RECOMMENDATION, EXTUBATION IS POSTPONED. DR. PALMA ACKNOWLEDGED.
[2019-05-06] MEDS: Magnesium 1GM/D5W 100ML PREMIX 100 ML IV SCH ×2 (12:16→14:26)
--- NOTE | 2019-05-06 14:20 | NUR ---
RN NOTE: PICC LINE ORDER OBTAINED FROM DR. JAVIER. TELEPHONE CONSENT PROVIDED BY PRESLEY SANCHEZ () AND WITNESSED BY IRAIS SKINNER
[2019-05-06] MEDS: POTASSIUM CL. PREMIX PERIPHER. 50 ML IV SCH ×2 (16:46→18:09)
--- NOTE | 2019-05-06 19:30 | NUR ---
RN NOTE Received patient sedated on Diprivan gtt at 50 mcg and patient orally intubated to vent on full vent support.Vent settings well tolerated.Patient awakens easily when turn to sides and tried to grab ET tube.Bilateral soft wrist restraints applied & protocol implemented.SR 70's-80's per monitor.Left NGT clamped, placement verified and patent.NPO status.FC to gravity.All IV's infusing well via DENIZ PICC LINE.Will turn and reposition Q 2hrs offloading pressure points.No acute distress noted.
--- NOTE | 2019-05-06 19:40 | NUR ---
RN CLOSING NOTE PATIENT REMAINS IN BED INTUBATED, SEDATED ON DIPRIVAN AT 50MCG/KG/MIN, ON TELE SR HR IN 90'S. TOLERATING MECH VENT SETTINGS WELL. NO SOB, NOT IN RESP. DISTRESS. L NARE NGT CLAMPED AND INTACT, GALEAS DRAINING TO GRAVITY WITH YELLOW CLEAR URINE, PICC LINE ON R UPPER ARM PLACED ON SHIFT, PATENT AND WITH INFUSIONS RUNNING WELL. L HAND AND L FOREARM IV SITES IN PLACE. CONTINUOUS BEHAVIOR OF PATIENT TRYING TO PULL OUT LINES. NOTED EVEN WITH DIPRIVAN INFUSION AT 50MCG/KG/MIN. FACIAL EDEMA AND BILATERAL UPPER AND LOWER EXTREMITIES STILL NOTED. PATIENT WAS WEANED EARLY ON SHIFT AND DID NOT TOLERATE THE PROCEDURE, PLANNED EXTUBATION CANCELLED. IS AWARE. EEG DONE ON SHIFT IN THE PM. POTASSIUM AND MAGNESIUM REPLACED. CALL LIGHT WITHIN EASY REACH, BED LOCKED AND IN LOWEST POSITION, NO S/SX OF PAIN NOTED. ENDORSED TO TRIGONOMETRY TUTOR FOR HUGO.
--- NOTE | 2019-05-06 20:18 | NUR ---
PT RECEIVED ORALLY INTUBATED WITH 7.5 ETT SECURED@ 24 CM @ LIPLINE ON VENT WITH NOTED SETTINGS PER MD ORDER. PT IS SEDATED. VENT PLUGGED INTO RED OUTLET. ALARMS ON AND AUDIBLE. NO SOB NOTED AT THIS TIME. BREATHING TX'S GIVEN ORDERED. NO ADVERSE REACTIONS NOTED. SUCTIONED PRN. WILL CONTINUE TO MONITOR FOR ANY CHANGES.
[2019-05-06] MEDS: CEFTRIAXONE 1 G in IV D5W 50 ML IV SCH (21:00)
[2019-05-07] VITALS (43 sets, daily range): BP systolic 104–159; BP diastolic 37–109
--- NOTE | 2019-05-07 | NUR ---
Patient more awake now and agitated with Diprivan infusing at 50 mcg.Bed bath rendered for comfort.Turned and repositioned.VS stable.Continue monitoring.
[2019-05-07] MEDS: PROPOFOL 100 ML IV PRN ×2 (01:24→05:39)
[2019-05-07] MEDS: ALBUTEROL FS 2.5 MG/3 ML VIAL.NEB NEB SCH ×4 (01:38→20:21)
[2019-05-07] MEDS: IPRATROPIUM NEB FS 0.5 MG/2.5 ML AMPUL.NEB NEB SCH ×4 (01:38→20:21)
[2019-05-07 04:40] LABS: BASOPHILS % (AUTO) 0.2 % (0.0-2.0); HEMATOCRIT 35 % (33-45); HEMOGLOBIN 11.6 g/dL (11.5-14.8); LYMPHOCYTES # (AUTO) 0.7 /CMM (0.8-4.8); LYMPHOCYTES % (AUTO) 6.9 % (20.0-44.0); MEAN CORPUSCULAR HGB CONC 33 g/dl (31.0-36.0); MEAN CORPUSCULAR VOLUME 109 fL (82-100); MONOCYTES # (AUTO) 0.6 /CMM (0.1-1.30); MONOCYTES % (AUTO) 6.2 % (2.0-12.0); NEUTROPHILS # (AUTO) 8.8 /CMM (1.8-8.9); NEUTROPHILS % (AUTO) 86.7 % (43.0-81.0); PLATELET COUNT (AUTO) 93 /CMM (150-450); WHITE BLOOD COUNT (AUTO) 10.1 K/uL (4.3-11.0)
[2019-05-07 04:52] LABS: CALCIUM, SERUM 8.3 mg/dL (8.5-10.1); CREATININE 0.2 mg/dL (0.6-1.3); MAGNESIUM 1.9 mg/dL (1.8-2.4); POTASSIUM 3.9 mmol/L (3.5-5.1)
[2019-05-07] MEDS: methylPREDNISolone SOD SUCC 40 MG/ML VIAL IV SCH ×3 (04:54→18:47)
[2019-05-07 05:57] LABS: LYMPHOCYTES % (MANUAL) 4 % (16-48); MONOCYTES % (MANUAL) 3 % (0-11.0); NEUTROPHILS % (MANUAL) 93 (42-76)
--- NOTE | 2019-05-07 07:00 | NUR ---
Patient status unchanged.All needs attended and met.For SIMV vent settings today.Will endorse to day shift for HUGO.VSS.Turned and repositioned.
--- NOTE | 2019-05-07 07:30 | NUR ---
BOILER HELPER OPENING NOTE PT RECEIVED ORALLY INTUBATED WITH 7.5 ETT SECURED@ 24 CM @ LIPLINE ON VENT TOLERATING SETTINGS WELL. PT IS SEDATED WITH PROPOFOL@50MCG. NO SOB NOTED AT THIS TIME.SAFETY AND ASPIRATION PRECAUTION IN PLACE.BILATERAL SOFT RESTRAINTS ON .VISUAL CHECK DONE.WILL CONTINUE TO MONITOR.
[2019-05-07 08:52] LABS: ABG BASE EXCESS 0.1 mmol/L; ABG OXYGEN SATURATION 97.5 % (92.0-98.5); ABG PCO2 30.4 mmHg (35.0-45.0); ABG PH 7.489 (7.350-7.450); ABG PO2 108.7 mmHg (75.0-100.0); AaDO2 141.5 mmHg; COHb 0.3 % (0.5-1.5); O2Hb 96.2 % (94.0-97.0); SITE, ABG Right Radial
[2019-05-07] MEDS ORDERED: DC PROPOFOL WHEN EXTUBATED XX PRN (09:00)
--- NOTE | 2019-05-07 09:00 | NUR ---
BRASS AND WIND INSTRUMENT REPAIRER NOTE PATIENT OFF FROM PROPOFOL .PATIENT ALERT FOLLOWING DIRECTIONS .ABLE TO WRITE DOWN PATIENT NEED WITH PEN NAD PAPER.TRYING TO REACH ETT.RESTRAINTS STILL ON.ABG DONE .RELAYED RESULT TO BY RT.AWAITING FOR NEW ORDERS.
--- NOTE | 2019-05-07 09:30 | NUR ---
INORGANIC CHEMICAL TECHNICIAN NOTE SEEN BY .OK TO EXTUBATE THE PATIENT .PATIENT GOT EXTUBATED 0920 AM.PLACED ON NASAL CANULA 4L.NO SOB NO DISTRESS NOTED.STRONG COUGH REFLEX NOTED.SATURATING 100%.PATENT AXOX4 ,LETHARGIC.RESTRAINTS REMOVED WITH NG TUBE.BEDSIDE SWALLOW EVAL DONE.PATIENT ABLE TO SWALLOW WITHOUT COUGH.WILL CONTINUE TO MONITOR.
[2019-05-07] MEDS: Z GUARD REMEDY 2 OZ OINT TP SCH ×2 (09:51→20:51)
[2019-05-07] MEDS: MENTHOL/CETYLPYRD (CEPACOL) 1 LOZ LOZENGE PO PRN ×3 (10:29→23:34)
--- NOTE | 2019-05-07 11:30 | NUR ---
METER REPAIRER HELPER NOTE MADE AWARE PATIENT CONDITION WITH PATIENT UPDATES.S/P EXTUBATION.TOLERATING WELL.OK TO START PO DIET.ADVANCE TOLERATED.GOT ORDER FOR MRI BRAIN WITH AND WITHOUT CONTRAST.PATIENT MADE AWARE.WILL CONTINUE TO MONITOR.
--- NOTE | 2019-05-07 12:53 | NUR ---
TEXTED DR. ZHU FOR MRI APPROVAL.
--- NOTE | 2019-05-07 17:55 | NUR ---
HEAD BOYS GOLF COACH NOTE PATIENT WAS OUT FOR MRI FROM [id number].PATIENT STABLE.WILL CONTINUE TO MONITOR.AWAITING FOR RESULT
[2019-05-07] MEDS: SYMBICORT INH SCH (18:47)
--- NOTE | 2019-05-07 19:25 | NUR ---
ICU/RN notes Patient received in bed, Awake A/O x3-4, denied any pain or discomfort at this time, S/P extubation in AM. in no acute distress, breathing even and unlabored. No SOB noted, On O2 4LPM via NC, saturating 95% at this time, HOB elevated to semi vang position. IV sites with no S/S of infection, infiltration, PICC line, patent, fluids running as ordered. Safety maintained, bed at the lowest locked position. Call light within reach. Will continue to monitor as per plan of care.
--- NOTE | 2019-05-07 19:35 | NUR ---
FLASH DEVELOPER CLOSING NOTE PATIENT ENDORSED TO PM NURSE IN STABLE CONDITION.AWAITING MRI RESULT.NO SOB NO DISTRESS NOTED.ON TELE MONITOR DT WITH HR B106.ON O2 2L VIA NASAL CANULA.PATIENT AXOX4.PATIENT STATED THAT HER CLOTHES ARE MISSING.BUT NONE ENTERED IN BELONGING LIST EXCEPT UNDERWEAR.CALL MADE TO ER.SPOKE TO ADAN.CHECKED IN PATIENT BELONGINGS.NONE FIND.PATIENT AND MADE AWARE.OTHER BELONGINGS TAKEN HOME.SAFETY AND ASPIRATION MEASURES IN PLACE.
[2019-05-07] MEDS ORDERED: GADOTERIDOL 279.3 MG/ML VIAL IV ONE (20:19)
[2019-05-07] MEDS: ACETAMINOPHEN 325 MG TABLET PO PRN (20:29)
[2019-05-07] MEDS: Potassium Chloride 10 MEQ in IV NS 0.9% 1,000 ML IV PRN (20:51)
[2019-05-08] VITALS (23 sets, daily range): BP systolic 119–178; BP diastolic 64–122
[2019-05-08] MEDS: ALBUTEROL FS 2.5 MG/3 ML VIAL.NEB NEB SCH ×4 (02:13→20:17)
[2019-05-08] MEDS: IPRATROPIUM NEB FS 0.5 MG/2.5 ML AMPUL.NEB NEB SCH ×4 (02:13→20:17)
[2019-05-08] MEDS: ACETAMINOPHEN 325 MG TABLET PO PRN (03:05)
[2019-05-08] MEDS: methylPREDNISolone SOD SUCC 40 MG/ML VIAL IV SCH ×3 (03:06→18:30)
--- NOTE | 2019-05-08 04:20 | NUR ---
Patient blood pressure 164/90, HR 101, In no acute distress, Called Dr. Bharat Keys, relayed patient condition and Vital Signs with order to give patient clonidine 0.1mg Q6hrs PRN for SBP >160. Noted and carried out.
[2019-05-08] MEDS ORDERED: CLONIDINE HCL 0.1 MG TABLET PO PRN (05:00)
[2019-05-08 05:02] LABS: CALCIUM, SERUM 8.6 mg/dL (8.5-10.1); CREATININE 0.4 mg/dL (0.6-1.3); POTASSIUM 3.5 mmol/L (3.5-5.1)
--- NOTE | 2019-05-08 05:12 | NUR ---
Patient complain of lower back pain 11/05. Called Dr Nicholson, relayed that patient only has Acetaminophen for minor pain, with new order for [place] as ordered. Noted and carried out
[2019-05-08 05:18] LABS: HEMATOCRIT 35 % (33-45); HEMOGLOBIN 11.8 g/dL (11.5-14.8); LYMPHOCYTES # (AUTO) 0.6 /CMM (0.8-4.8); LYMPHOCYTES % (AUTO) 7.7 % (20.0-44.0); MEAN CORPUSCULAR HGB CONC 34 g/dl (31.0-36.0); MEAN CORPUSCULAR VOLUME 107 fL (82-100); MONOCYTES # (AUTO) 0.8 /CMM (0.1-1.30); MONOCYTES % (AUTO) 9.2 % (2.0-12.0); NEUTROPHILS # (AUTO) 6.9 /CMM (1.8-8.9); NEUTROPHILS % (AUTO) 83.1 % (43.0-81.0); PLATELET COUNT (AUTO) 127 /CMM (150-450); RED BLOOD CELL COUNT(AUTO) 3.25 MIL/uL (4.0-5.2); WHITE BLOOD COUNT (AUTO) 8.3 K/uL (4.3-11.0)
[2019-05-08] MEDS: HYDROCODONE/APAP 5/325MG 1 EACH TABLET PO PRN ×3 (05:21→20:23)
[2019-05-08 05:46] LABS: LYMPHOCYTES % (MANUAL) 4 % (16-48); MONOCYTES % (MANUAL) 6 % (0-11.0); NEUTROPHILS % (MANUAL) 90 (42-76)
--- NOTE | 2019-05-08 07:05 | NUR ---
ICU/RN notes Patient remained in bed, Awake A/O x3-4, denied any pain, in no acute distress, breathing even and unlabored. No SOB noted, On O2 3LPM via NC, saturating 95% at this time, HOB elevated to semi vang position. IV sites with no S/S of infection, infiltration, PICC line, patent, fluids running as ordered. Patient blood pressure still noted high, MD aware, will endorse to AM Shift nurse to Follow up with MD, Safety maintained, bed at the lowest locked position. Call light within reach. endorse to AM shift nurse for HUGO
--- NOTE | 2019-05-08 08:00 | NUR ---
ICU/N INITIAL NOTES,AM RECEIVED BEDSIDE REPORT FROM NIGHT NURSE. PT ALERT,AWAKE, FOLLOWS COMMANDS. ON NASAL CANULA 3 LITERS, TOLERATING WELL, NO DISTRESS NOTED. SINUS ON TELE, ELEVATED BP NOTED, PRN MEDICATION GIVEN, WILL REASSESS AND INFORM MD. PICC AND PIV PATENT AND INTACT, NO S/S OF INFECTION OR INFILTRATION NOTED. NS WITH KCL INFUSING ORDERED. PT WAS EXTUBATED YESTERDAY, TOLERATING WELL, POSSIBLE DOWNGRADE THIS AM. ALL NEEDS WILL BE ATTENDED TO, SAFETY MEASURES TAKEN, BED IN LO POSITION, SIDE RAILS UP CALL LIGHT WITHIN REACH.
[2019-05-08] MEDS ORDERED: IRBESARTAN (150MG) 150 MG TABLET PO SCH (09:00)
[2019-05-08] MEDS: SYMBICORT INH SCH ×2 (09:15→17:20)
[2019-05-08] MEDS: SPIRIVA INHALER INH SCH (09:16)
[2019-05-08] MEDS: Z GUARD REMEDY 2 OZ OINT TP SCH ×2 (09:16→21:19)
[2019-05-08] MEDS ORDERED: LOSARTAN POTASSIUM 25 MG TABLET PO SCH (09:24)
[2019-05-08] MEDS: AMLODIPINE BESYLATE 10 MG TABLET PO SCH (09:35)
--- NOTE | 2019-05-08 11:49 | NUR ---
ICU/RN: ORDERS RECEIVED TO TRANSFER PT TO [facility] PER .WILL FOLLOW THROUGH.
--- NOTE | 2019-05-08 12:45 | NUR ---
ICU/RN:PT TRANSPORTED TO [facility]-. REPORT ENDORSED TO TYRA BRAXTON. ALL BELONGINGS SENT WITH PT. PT ON NASAL CANULA, NO DISTRESS. SINUS ON TELE. ENDORSED REPORT FOR HUGO.
--- NOTE | 2019-05-08 12:50 | NUR ---
m/s metal pourer: notes received pt from icu via bed accompanied by 2 nurses. pt awake, a/ox4. no c/o pain or any discomfort. oriented to room and surroundings. noted with flushed facial redness with upper ext's ecchymosis and ble discoloration. f/c draining to gravity. on o2 at 3l/min via n/c. will continue to monitor.
--- NOTE | 2019-05-08 13:30 | NUR ---
m/s brim stitcher: notes dr. archibald called and wants pt transferred to another hospital due to insurance. cn made aware and called case management. pt made aware.
--- NOTE | 2019-05-08 14:00 | NUR ---
m/s composition floor layer: notes denny (case management) at bedside and talking to pt re: transfer to [facility]. pt agreed. case management will coordinate with regal.
--- NOTE | 2019-05-08 15:00 | NUR ---
m/s contact center team lead: notes here and demanding to speak to dr. archibald. dr. archibald notified, left message in office. informed that pt is getting transferred due to insurance issue; also case management spoke to pt at bedside earlier. per pt and , pt is getting discharge tomorrow. number of dr. archibald given to . taken her hairpin and denies that the cigarettes are for her/him.
--- NOTE | 2019-05-08 15:15 | NUR ---
m/s loan services professional: notes dr. archibald called back and informed me to tell the pt and that he will see them at [facility] once transferred there. pt made aware, already left. pt will call .
--- NOTE | 2019-05-08 17:15 | NUR ---
m/s md senior research scientist: notes still awaiting for regal to call [facility] case management. pt keeps asking every 15 minutes. pt aware that her insurance will arrange transportation and bed. will continue to monitor.
[2019-05-08] MEDS ORDERED: LOSARTAN POTASSIUM 50 MG TABLET PO SCH (17:30)
--- NOTE | 2019-05-08 17:53 | NUR ---
m/s salsa dance instructor: notes having dinner with hob elevated. still awaiting for her insurance to call for bed and transportation. cd ordered.
--- NOTE | 2019-05-08 18:39 | NUR ---
m/s packing line operator: notes iv leaking to left forearm, removed with tip intact. still awaiting for regal insurance to call case management for the placement.
--- NOTE | 2019-05-08 19:08 | NUR ---
m/s soaking pit operator: notes report given to deisy (rn) for continuity of care. still awaiting for regal insurance to call case management or nurse for discharge to [facility].
--- NOTE | 2019-05-08 19:50 | NUR ---
MS RN NOTE: PATIENT RESTING IN BED, NO ACUTE DISTRESS NOTED. BREATHING EVEN AND UNLABORED, NO SOB NOTED. PICC LINE TO DENIZ IN PLACE. PATIENT TO BE DISCHARGE TO [facility] AWAITING FOR REGAL TO SET UP TRANSFER. BED LOCKED AND IN LOWEST POSITION, CALL LIGHT IN REACH. WILL CONTINUE TO MONITOR.
--- NOTE | 2019-05-08 20:30 | NUR ---
MS RN NOTE: PATIENT COMPLAINS OF BACK PAIN 11/05, NORCO 5/325MG 1 TAB ORAL GIVEN PER MD ORDER. WILL CONTINUE TO MONITOR.
[2019-05-09] MEDS: ALBUTEROL FS 2.5 MG/3 ML VIAL.NEB NEB SCH ×4 (01:30→19:29)
[2019-05-09] MEDS: IPRATROPIUM NEB FS 0.5 MG/2.5 ML AMPUL.NEB NEB SCH ×4 (01:30→19:29)
[2019-05-09] MEDS: methylPREDNISolone SOD SUCC 40 MG/ML VIAL IV SCH ×3 (03:51→23:49)
--- NOTE | 2019-05-09 06:20 | NUR ---
MS RN NOTE: PATIENT RESTING IN BED, NO ACUTE DISTRESS NOTED. BREATHING EVEN AND UNLABORED, NO SOB NOTED. PICC LINE TO DENIZ IN PLACE. NO CALL FROM [facility] FOR TRANSFER RECEIVED YET. BED LOCKED AND IN LOWEST POSITION, CALL LIGHT IN REACH. WILL ENDORSE TO DAY NURSE TO CONTINUE WITH PLAN OF CARE.
[2019-05-09 07:39] LABS: BASOPHILS % (AUTO) 0.1 % (0.0-2.0); HEMATOCRIT 39 % (33-45); HEMOGLOBIN 13.4 g/dL (11.5-14.8); LYMPHOCYTES # (AUTO) 0.6 /CMM (0.8-4.8); LYMPHOCYTES % (AUTO) 5.4 % (20.0-44.0); MEAN CORPUSCULAR HGB CONC 34 g/dl (31.0-36.0); MEAN CORPUSCULAR VOLUME 105 fL (82-100); MONOCYTES # (AUTO) 1.2 /CMM (0.1-1.30); MONOCYTES % (AUTO) 11.9 % (2.0-12.0); NEUTROPHILS # (AUTO) 8.5 /CMM (1.8-8.9); NEUTROPHILS % (AUTO) 82.6 % (43.0-81.0); PLATELET COUNT (AUTO) 163 /CMM (150-450); RED BLOOD CELL COUNT(AUTO) 3.73 MIL/uL (4.0-5.2); WHITE BLOOD COUNT (AUTO) 10.3 K/uL (4.3-11.0)
[2019-05-09 07:49] LABS: CALCIUM, SERUM 9.3 mg/dL (8.5-10.1); CREATININE 0.3 mg/dL (0.6-1.3); POTASSIUM 3.2 mmol/L (3.5-5.1)
[2019-05-09 08:00] VITALS: BP 165/92
[2019-05-09 08:52] VITALS: BP 165/92
[2019-05-09] MEDS ORDERED: LOSARTAN POTASSIUM 50 MG TABLET PO SCH (09:00)
[2019-05-09] MEDS: AMLODIPINE BESYLATE 10 MG TABLET PO SCH (09:39)
[2019-05-09] MEDS: Z GUARD REMEDY 2 OZ OINT TP SCH ×2 (09:40→21:55)
[2019-05-09] MEDS: SYMBICORT INH SCH ×2 (09:42→17:07)
[2019-05-09] MEDS: SPIRIVA INHALER INH SCH (09:43)
[2019-05-09] MEDS ORDERED: POTASSIUM CHLORIDE 20 MEQ TAB.PRT.SR PO ONE (10:00)
[2019-05-09] MEDS ORDERED: PRED20TA PO (11:27)
[2019-05-09] MEDS ORDERED: NIFE-34 PO (11:27)
[2019-05-09] MEDS ORDERED: LOSA50TA3 PO (11:27)
[2019-05-09] MEDS ORDERED: NIFEdipine XL 60 MG TAB PO SCH (11:30)
--- NOTE | 2019-05-09 11:37 | NUR ---
MS RN NOTES-- PT WAS SEEN AND EXAMINED BY DR. JAVIER W/ ORDERS TO D/C [facility], AMBULATE PT WITH FWW WITHOUT OXYGEN. PT ABLE TO AMBULATE WITH FWW FOR 20 FT WITHOUT OXYGEN, SATURATING 94% RA. DR. JAVIER MADE AWARE.
[2019-05-09] MEDS ORDERED: NIFEdipine XL 60 MG TAB PO ONE (11:50)
--- NOTE | 2019-05-09 11:50 | NUR ---
MS RN NOTES-- PT'S BP 155/79, HR 89. RECEIVED ORDERS PER DR. JAVIER FOR ONE TIME DOSE OF PROCARDIA 60MG. ORDERS READ BACK AND VERIFIED. NOTED AND CARRIED OUT.
--- NOTE | 2019-05-09 12:41 | NUR ---
MS RN NOTES-- PT EXPRESSED CONCERNS THAT SHE WANTS TO STAY ANOTHER DAY TO AMBULATE WITH NURSING. NOTIFIED DR. JAVIER, PER DR. JAVIER OKAY TO STAY ONE MORE NIGHT AND TO BE D/C TOMORROW. PER DR. JAVIER, "FOR NURSING TO AMBULATE PT TODAY AND TOMORROW PRIOR TO DISCHARGING." PT AGREED. CHARGE NURSE MADE AWARE.
[2019-05-09 16:00] VITALS: BP 125/71
--- NOTE | 2019-05-09 18:29 | NUR ---
MS RN END OF SHIFT REPORT PT IS A/OX4, AFEBRILE. RESPIRATIONS ARE EVEN AND UNLABORED, NOT IN ANY ACUTE DISTRESS NOTED. PT DENIES ANY PAIN, NO C/O SOB, N/V. +BOWEL SOUNDS, +FLATUS. GALEAS REMOVED AND PT ABLE TO VOID. PT IS AMBULATORY WITH FWW AND ASSISTANCE. SKIN KEPT CDI. SAFETY MEASURES ARE IN PLACE. ALL NEEDS MET AND RENDERED. CONTINUE W/ POC. WILL ENDORSE TO NEXT SHIFT FOR CONTINUITY OF CARE.
--- NOTE | 2019-05-09 19:11 | NUR ---
CHANGE OF SHIFT REPORT Patient in bed, tolerating RA, denies shortness of breath. Appears comfortable in bed. Safety measure maintained, instructed to use call light for assistance, verbalized understanding.
[2019-05-09 20:00] VITALS: BP 118/64
[2019-05-10] MEDS: HYDROCODONE/APAP 5/325MG 1 EACH TABLET PO PRN ×2 (00:37→11:58)
[2019-05-10] MEDS: IPRATROPIUM NEB FS 0.5 MG/2.5 ML AMPUL.NEB NEB SCH ×2 (01:14→08:44)
[2019-05-10] MEDS: ALBUTEROL FS 2.5 MG/3 ML VIAL.NEB NEB SCH ×2 (01:14→08:44)
--- NOTE | 2019-05-10 06:13 | NUR ---
END OF SHIFT REPORT Patient in bed, tolerating RA, denies shortness of breath at rest and with exertion. Ambulates independently, voided without difficulty. Right shoulder pain relieve with PRN [place]. Hourly rounds, no episodes of seizures. Maintained safety. Plan discharge home with HH/PT.
[2019-05-10 06:58] LABS: CALCIUM, SERUM 9.2 mg/dL (8.5-10.1); CREATININE 0.3 mg/dL (0.6-1.3); POTASSIUM 3.3 mmol/L (3.5-5.1)
[2019-05-10 08:00] VITALS: BP 106/49
[2019-05-10 09:00] VITALS: BP 106/49
[2019-05-10] MEDS ORDERED: NIFEdipine XL 60 MG TAB PO SCH (09:00)
[2019-05-10] MEDS ORDERED: POTASSIUM CHLORIDE 20 MEQ POWDER PACKET PO SCH (11:00)
[2019-05-10] MEDS: methylPREDNISolone SOD SUCC 40 MG/ML VIAL IV SCH (11:32)
--- NOTE | 2019-05-10 14:10 | NUR ---
Patient cleared for D/C by MD. Patient alert and oriented x4, ambulatory with assistance. Breathing unlabored and even on room air, not in any distress. Discharge instructions and teaching provided; patient verbalized understanding. Patient received a new prescription and release from work for one week. Patient has b/l arm ecchymosis and refused to take d/c pictures. No other skin issues found. PiCC line removed ; no bleeding , no s/s infection noted. ID wrist band removed. Patient sighed valuable form and all belongings with the patient including home inhalers. Patient safely transferred to [facility] via wheelchair accompanied by FRANCIA De Jesus and picked up by .
== END 2019-05-10 14:10 | disposition home health service (06) | DRG 208 ==
LOC: ER 22:32 → ICU 05-05 02:24 → MED 05-08 12:42
PROVIDERS: ADMIT Internal Medicine; ATTEND Internal Medicine
PROC: 5A1945Z Respiratory Ventilation, 24-96 Consecutive Hours (ICD-10-PCS; principal; 2019-05-05)
PROC: 0BH17EZ Insertion of Endotracheal Airway into Trachea, Via Natural or Artificial Opening (ICD-10-PCS; principal; 2019-05-05)
PROC: 02HV33Z Insertion of Infusion Device into Superior Vena Cava, Percutaneous Approach (ICD-10-PCS; 2019-05-06)
PROC: B548ZZA Ultrasonography of Superior Vena Cava, Guidance (ICD-10-PCS; 2019-05-06)
DX: J96.01 Acute respiratory failure with hypoxia (principal); E87.1 Hypo-osmolality and hyponatremia; J44.1 Chronic obstructive pulmonary disease with (acute) exacerbation; N39.0 Urinary tract infection, site not specified; E87.2 Acidosis; G40.909 Epilepsy, unspecified, not intractable, without status epilepticus; E78.5 Hyperlipidemia, unspecified; I10 Essential (primary) hypertension; F17.210 Nicotine dependence, cigarettes, uncomplicated; Z88.0 Allergy status to penicillin; Z96.641 Presence of right artificial hip joint; D69.6 Thrombocytopenia, unspecified; E83.42 Hypomagnesemia; E87.6 Hypokalemia
CPT/HCPCS: 31720; 36415; 36569; 36600; 70450-TC; 70553-TC; 71045-TC; 80048-TC; 80053-TC; 80076-TC; 81000-TC; 82803-TC; 83605-TC; 83735-TC; 83880; 84484-TC; 85025-TC; 85378-TC; 87040-TC; 87081-TC; 87086-TC; 94002-TC; 94003-TC; 94760-TC; 94799-TC; 95819-TC; 97116-TC; 97530-TC; 99082-TC; A4216; A9579; C1751; G0378; G0500; J0696; J1630; J1953; J1956; J2060; J2920; J3475; J3480; J3490; J7030; J7050; J7060